=== PATIENT | male | born 1995 | race Caucasian/White ===

== ENCOUNTER → 2019-12-20 | Outpatient (REF) | payer BC, SELFPAY ==
[2019-12-21 09:42] LABS: HEPATITIS B SURFACE ANTIBODY POSITIVE (POSITIVE); HEPATITIS B SURFACE ANTIGEN NEGATIVE (NEGATIVE); HEPATITIS C VIRUS ABY INDEX 0.2 INDEX (<0.8); HIV 1&2 SCREEN CENTAUR NEGATIVE (NEGATIVE)
== END ==
LOC: M LAB REF 11:31
PROVIDERS: ATTEND Family Medicine Addiction Medicine
DX: Z20.2 Contact with and (suspected) exposure to infections with a predominantly sexual mode of transmission (principal)

== ENCOUNTER 2024-08-07 08:26 | Emergency (ER) | payer OTHER, SELFPAY ==
[~2024-08-07] VITALS: Ht 170.2 cm; Wt 110.6 kg
[2024-08-07] MEDS ORDERED: NAPR-837 PO (10:40)
[2024-08-07 10:53] VITALS: BP 137/80; TEMP 99; O2SAT 99
== END 2024-08-07 11:02 | disposition home or self-care (01) ==
LOC: M ED 08:26
DX: S69.92XA Unspecified injury of left wrist, hand and finger(s), initial encounter (principal); Y92.9 Unspecified place or not applicable; Y93.9 Activity, unspecified; Y99.0 Civilian activity done for income or pay; Z79.899 Other long term (current) drug therapy

== ENCOUNTER → 2024-09-24 | Outpatient (CLI) | payer OTHER ==
[~2024-09-24] MED LIST: NAPR-837 PO
== END ==
LOC: M RAD 08:43
PROVIDERS: ATTEND Physician Assistant
DX: T15.90XA Foreign body on external eye, part unspecified, unspecified eye, initial encounter (principal)

== ENCOUNTER → 2025-01-22 | Outpatient (CLI) | payer OTHER ==
[~2025-01-22] MED LIST changes: +ISOVUE-300 61% 100 ML VIAL As Ordered ONE; +LIDOCAINE 1% MDV 20 ML VIAL As Ordered ONE; +PROHANCE 279.3MG/ML 5ML VIAL As Ordered ONE
== END ==
LOC: M RAD 06:44
PROVIDERS: ATTEND Physician Assistant
DX: M25.532 Pain in left wrist (principal)
CPT/HCPCS: 25246; 73223; 77002; A9576; Q9967